=== PATIENT | male | born 2005 | race African-American/Black ===

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

== ENCOUNTER 2025-03-30 12:51 | Emergency (ER) | payer OTHER ==
[2025-03-30 12:57] VITALS: BP 123/73; PULSE 65; RESP 18; TEMP 97.6; BMI 21.7
[2025-03-30] MEDS ORDERED: ACETAMINOPHEN 500 MG TABLET (FP) ONE (14:05)
[2025-03-30] MEDS ORDERED: IBUPROFEN 400 MG TABLET (FP) PO ONE (14:05)
[2025-03-30] MEDS: ACETAMINOPHEN 500 MG TABLET (FP) PO ONE (14:10)
[2025-03-30] MEDS: IBUPROFEN 400 MG TABLET (FP) PO ONE (14:10)
== END 2025-03-30 15:10 | disposition home or self-care (01) ==
LOC: JERFT 12:51
DX: S93.402A Sprain of unspecified ligament of left ankle, initial encounter (principal); X50.1XXA Overexertion from prolonged static or awkward postures, initial encounter; Y93.67 Activity, basketball
CPT/HCPCS: 73610-TC-LT-FY; 73630-TC-LT; 99283-25